=== PATIENT | male | born 1975 | race American Indian/Alaskan Native ===

== ENCOUNTER 2016-11-25 16:50 | Emergency (ER) | payer BC ==
[2016-11-25 17:40] LABS: BASO # 0.1 K/uL (0.0-0.2); EOS # 0.2 K/uL (0.0-0.7); EOS % 2.3 % (0.0-4.0); HEMOGLOBIN 13.6 g/dL (12.0-18.0); LYMPH # 2.6 K/uL (1.0-4.3); LYMPH % 30.2 % (20.0-40.0); MEAN CELL VOLUME 85.4 fL (80.0-94.0); MEAN CORPUSCULAR HEMOGLOBIN 28.1 pg (27.0-31.0); MEAN CORPUSCULAR HGB CONC 32.9 g/dL (33.0-37.0); MEAN PLATELET VOLUME 8.5 fL (7.2-11.7); MONO # 0.7 K/uL (0.0-0.8); MONO % 7.8 % (0.0-10.0); NEUT % 58.7 % (50.0-75.0); NRBC % 0.1 % (0.0-2.0); RBC 4.84 Mil/uL (4.40-5.90); RED CELL DISTRIBUTION WIDTH 13.4 % (11.5-14.5); WHITE BLOOD COUNT 8.6 K/uL (4.8-10.8)
[2016-11-25 17:47] LABS: ALBUMIN 4.5 g/dL (3.5-5.0)
[2016-11-25 17:49] LABS: GFR AFRICAN-AMERICAN > 60; GFR NON-AFRICAN AMERICAN > 60
[2016-11-25 17:50] LABS: ALB/GLOB RATIO 1.4 (1.0-2.1); ALT/SGPT 27 U/L (21-72); AST/SGOT 21 U/L (17-59); BLOOD UREA NITROGEN 12 mg/dL (9-20); CALCIUM 8.8 mg/dl (8.6-10.4); LIPASE 64 U/L (23-300)
--- NOTE | 2016-11-25 17:54 | RAD ---
HISTORY: SOB, abd pain COMPARISON: No prior. TECHNIQUE: Chest PA and lateral FINDINGS: LUNGS: Increased opacity seen in the right infrahilar region could represent atelectasis however developing the infrahilar infiltrate not excluded. There is a approximately 12.5 mm rounded nodular density left upper lobe which is located between the left anterior 2nd and 3rd ribs. This is very well-circumscribed with sharp margination and could represent represent skin mole however CT scan of the chest is recommended further evaluation to exclude a parenchymal low lung mass. . Note these findings were discussed with ELADIO Quintanilla at approximately 5:49 p.m. with written down and read back verification. PLEURA: No significant pleural effusion identified. No pneumothorax apparent. CARDIOVASCULAR: Normal. OSSEOUS STRUCTURES: Mild dextroscoliosis centered in the mid lower thoracic region radiology pectus VISUALIZED UPPER ABDOMEN: Normal. OTHER FINDINGS: None. IMPRESSION: 12.5 mm rounded nodular density left upper lobe which is located between the left anterior 2nd and 3rd ribs. This is very well-circumscribed with sharp margination and could represent represent skin mole however CT scan of the chest is recommended further evaluation to exclude a parenchymal low lung mass. . Note these findings were discussed with ELADIO Quintanilla at approximately 5:49 p.m. with written down and read back verification.
--- NOTE | 2016-11-25 18:23 | C.PDOC ---
History Of Present Illness <Rachel Quintanilla - Last Filed: 11/25/16 18:59> <Annita Montemayor - Last Filed: 11/25/16 20:48> 41 y/o male presents to ED with c/o LLQ abdominal pain for 4 months. Patient states he was evaluated for similar symptoms but did not receive results. Patient states pain worsened over the last 3-4 days, prompting visit. Denies fever, chills, nausea, vomiting, diarrhea, urinary symptoms, or other associated symptoms. (Rachel Quintanilla) History Per: Patient History/Exam Limitations: no limitations Onset/Duration Of Symptoms: Persistent Current Symptoms Are (Timing): Worse Location Of Pain/Discomfort: LLQ Radiation Of Pain To:: None Quality Of Discomfort: "Pain" Associated Symptoms: denies: Fever, Chills, Nausea, Vomiting, Diarrhea, Urinary Symptoms Recent travel outside of the [place]: No <Rachel Quintanilla - Last Filed: 11/25/16 18:59> <Annita Montemayor - Last Filed: 11/25/16 20:48> Time Seen by Provider: 11/25/16 17:10 Chief Complaint (Nursing): Abdominal Pain Past Medical History Reviewed: Historical Data, Nursing Documentation, Vital Signs - Medical History PMH: TIA Surgical History: Appendectomy Family History: States: Unknown Family Hx - Social History Hx Alcohol Use: Yes Hx Substance Use: No - Immunization History Hx Tetanus Toxoid Vaccination: No Hx Influenza Vaccination: No Hx Pneumococcal Vaccination: No <Rachel Quintanilla - Last Filed: 11/25/16 18:59> Review Of Systems Except As Marked, All Systems Reviewed And Found Negative. Constitutional: Negative for: Fever, Chills Cardiovascular: Negative for: Chest Pain Respiratory: Negative for: Cough, Shortness of Breath Gastrointestinal: Positive for: Abdominal Pain. Negative for: Nausea, Vomiting , Diarrhea Skin: Negative for: Rash Neurological: Negative for: Weakness, Numbness, Headache <Rachel Quintanilla - Last Filed: 11/25/16 18:59> Physical Exam - Physical Exam Appears: Non-toxic, No Acute Distress Skin: Normal Color, Warm, Dry Head: Atraumatic, Normacephalic Oral Mucosa: Moist Chest: Symmetrical Cardiovascular: Rhythm Regular Respiratory: Normal Breath Sounds, No Rales, No Rhonchi, No Wheezing Gastrointestinal/Abdominal: Soft, Tenderness (mild, LLQ), No Distention, No Guarding, No Rebound Back: Normal Inspection, No CVA Tenderness Extremity: Normal ROM, Capillary Refill (< 2 sec. ) Neurological/Psych: Oriented x3, Normal Speech, Normal Cognition <Rachel Quintanilla - Last Filed: 11/25/16 18:59> ED Course And Treatment - Laboratory Results Result Diagrams: 11/25/16 17:35 11/25/16 17:35 O2 Sat by Pulse Oximetry: 97 (RA) Pulse Ox Interpretation: Normal Progress Note: CT Chest, CT abdomen, labs ordered. Treated with Toradol. <Racehl Quintanilla - Last Filed: 11/25/16 18:59> - Laboratory Results Result Diagrams: 11/25/16 17:35 11/25/16 17:35 Pulse Ox Interpretation: Normal Progress Note: spoke with pt and (hipaa compliant) regarding the nodule found on the ct lung. Understands the need for follow up and also smoking cessation <Annita Montemayor - Last Filed: 11/25/16 20:48> Medical Decision Making <Rachel Quintanilla - Last Filed: 11/25/16 18:59> <Annita Montemayor - Last Filed: 11/25/16 20:48> Medical Decision Making: Patient was found to have nodule on CXR, CT chest ordered. (Rachel Quintanilla) Upon provider reevaluation patient is feeling better, is medically stable, and requires no further treatment in the ED at this time. Patient will be discharged home . Counseling was provided and all questions were answered regarding diagnosis and need for follow up with the referred clinic. There is agreement to discharge plan. Return if symptoms persist or worsen. (Annita Montemayor ) Disposition - Disposition Disposition Time: 19:00 <Rachel Quintanilla - Last Filed: 11/25/16 18:59> Counseled Patient/Family Regarding: Studies Performed, Diagnosis, Need For Followup, Smoking Cessation <Annita Montemayor - Last Filed: 11/25/16 20:48> - Disposition Referrals: [facility] [Outside] [facility] [Outside] Disposition: HOME/ ROUTINE Condition: FAIR Additional Instructions: Please repeat a CT scan of the chest in 3 months. Need to follow up with your doctor Instructions: Abdominal Pain (ED), Gas and Bloating (ED), Pulmonary Nodules (ED ) - Clinical Impression Clinical Impression: Abdominal pain, Lung mass - PA / TOP CLEANER / Resident Statement MD/DO has reviewed & agrees with the documentation as recorded. - Scribe Statement The provider has reviewed the documentation as recorded by the Scribe <Rachel Quintanilla - Last Filed: 11/25/16 18:59> <Annita Montemayor - Last Filed: 11/25/16 20:48> - Scribe Statement Chuck Marcus All medical record entries made by the Scribe were at my direction and personally dictated by me. I have reviewed the chart and agree that the record accurately reflects my personal performance of the history, physical exam, medical decision making, and the department course for this patient. I have also personally directed, reviewed, and agree with the discharge instructions and disposition. (Rachel Quintanilla) Physician Patient Turnover Patient Signed Over To: Annita Montemayor Handoff Comments: Pending CT scan and disposition <Rachel Quintanilla - Last Filed: 11/25/16 18:59>
[2016-11-25] MEDS ORDERED: Iohexol 350mg/ml 100 ML ONE (18:50)
[2016-11-25] MEDS ORDERED: Sodium Chloride 0.9% 1,000 ML IV ONE (18:58)
[2016-11-25 19:11] LABS: URINE BILIRUBIN NEGATIVE (NEGATIVE); URINE BLOOD 2+ (NEGATIVE); URINE CLARITY Clear (Clear); URINE COLOR Yellow (YELLOW); URINE GLUCOSE (UA) NORMAL (Normal); URINE LEUKOCYTE ESTERASE NEG Leu/uL (Negative); URINE NITRATE NEGATIVE (NEGATIVE); URINE PROTEIN NEGATIVE (NEGATIVE); URINE UROBILINOGEN NORMAL mg/dL (0.2-1.0)
[2016-11-25 21:08] VITALS: BP 107/71; PULSE 76; RESP 18; TEMP 98; O2SAT 98
--- NOTE | 2016-11-26 08:51 | CT ---
PROCEDURE: CT Chest, Abdomen and Pelvis with intravenous contrast HISTORY: Left upper lobe lung mass. COMPARISON: None. TECHNIQUE: Multiple contiguous axial images were performed through the chest abdomen and pelvis with the use of intravenous contrast. Subsequently, sagittal and coronal reformatted images were obtained. Radiation dose: Total exam DLP = 278 mGy-cm. This CT exam was performed using one or more of the following dose reduction techniques: Automated exposure control, adjustment of the mA and/or kV according to patient size, and/or use of iterative reconstruction technique. FINDINGS: CT CHEST WITH CONTRAST: LUNGS: 1.3 centimeter mass seen in the left upper lobe of the lung. This measures a Hounsfield unit attenuation of -29 suggestive for the presence of possible fatty components of the mass. MEDIASTINUM: Unremarkable. Normal caliber aorta and pulmonary arterial trunk. No aortic dissection. Normal size heart. LYMPH NODES: Few shotty axillary lymph nodes. PLEURA: Unremarkable. No pneumothorax. No pleural fluid. BONES: Unremarkable. OTHER FINDINGS: None. CT ABDOMEN AND PELVIS: LIVER: Focal areas of fatty infiltration adjacent to the falciform ligament in the liver. GALLBLADDER AND BILE DUCTS: Unremarkable. PANCREAS: Unremarkable. No gross lesion or ductal dilatation. SPLEEN: Unremarkable. ADRENALS: Unremarkable. No mass. KIDNEYS AND URETERS: 3 millimeter cortical cyst of the right kidney, too small to adequately characterize. VASCULATURE: Unremarkable. No aortic aneurysm. BOWEL: Markedly limited evaluation given lack of oral contrast as well as lack of intra-abdominal fat. Fecal retention in the colon. APPENDIX: Not well visualized given lack of oral contrast. No findings to suggest acute appendicitis. PERITONEUM: Unremarkable. No free fluid. No free air. LYMPH NODES: Unremarkable. No enlarged lymph nodes. BLADDER: Decompressed urinary bladder which is otherwise preserved. REPRODUCTIVE: Unremarkable. BONES: No acute fracture. OTHER FINDINGS: Soft tissue fullness in the bilateral inguinal regions probably representing fat containing hernias. No definite bowel loops identified. IMPRESSION: 1.3 centimeter low-density mass in the left upper lobe of the lung. The density of the mass is -29 Hounsfield units suggesting the presence of possible fatty components. This is of uncertain clinical etiology. Differential may include a hamartoma versus lipoma versus myelolipoma versus neoplasm versus additional etiology. Clinical correlation. Interval followup CT at a 3 month interval and or correlation with PET-CT and/or biopsy may be helpful if clinically indicated. Bilateral fat containing inguinal hernias. Additional findings as above. These findings were preliminarily reported at 8:19 p.m. on 11/25/[address] Gregorio Muñoz from [facility].
== END 2016-11-25 21:00 | disposition home or self-care (01) ==
LOC: C.ER 16:50
DX: R10.32 Left lower quadrant pain (principal); R91.8 Other nonspecific abnormal finding of lung field
CPT/HCPCS: 71020; 71260; 74177; 80053; 81001; 83690; 85025; 96361; 96374; 99284; J1885; J7040; Q9967

== ENCOUNTER 2017-11-23 08:30 | Emergency (ER) | payer BC ==
--- NOTE | 2017-11-23 09:47 | C.PDOC ---
History Of Present Illness 42-year-old male, presents to the emergency department complaining of left flank pain, happening intermittently for the past several months. Pt states that this morning, pain became more severe and associated with nausea, prompting visit. Patient states he has been seen for same complaint many times in the past, bloodwork was done but he has never been scanned. Patient denies any dysuria, hematuria, vomiting or diarrhea. No other complaints at this time. Time Seen by Provider: 11/23/17 09:30 Chief Complaint (Nursing): Abdominal Pain History Per: Patient History/Exam Limitations: no limitations Current Symptoms Are (Timing): Still Present Severity: Moderate Past Medical History Reviewed: Historical Data, Nursing Documentation, Vital Signs Vital Signs: Last Vital Signs Temp 98.7 F 11/23/17 12:14 Pulse 70 11/23/17 12:14 Resp 18 11/23/17 12:14 BP 126/87 11/23/17 12:14 Pulse Ox 99 11/23/17 12:14 - Medical History PMH: TIA Surgical History: Appendectomy Family History: States: No Known Family Hx - Social History Hx Alcohol Use: Yes Hx Substance Use: No - Immunization History Hx Tetanus Toxoid Vaccination: No Hx Influenza Vaccination: No Hx Pneumococcal Vaccination: No Review Of Systems Except As Marked, All Systems Reviewed And Found Negative. Constitutional: Negative for: Fever, Chills Cardiovascular: Negative for: Chest Pain, Palpitations Respiratory: Negative for: Shortness of Breath Gastrointestinal: Positive for: Nausea. Negative for: Vomiting Genitourinary: Negative for: Dysuria, Hematuria Musculoskeletal: Positive for: Back Pain Neurological: Negative for: Weakness Physical Exam - Physical Exam Appears: Non-toxic, No Acute Distress Skin: Normal Color, Warm, Dry, No Rash Head: Atraumatic, Normacephalic Eye(s): bilateral: Normal Inspection, PERRL, EOMI Nose: Normal Oral Mucosa: Moist Lips: Normal Appearing Neck: Normal ROM Cardiovascular: Rhythm Regular, No Murmur Respiratory: Normal Breath Sounds, No Accessory Muscle Use Gastrointestinal/Abdominal: Soft, No Tenderness, No Distention, No Guarding, No Rebound Back: CVA Tenderness (Left) Extremity: Normal ROM, No Deformity, No Swelling Neurological/Psych: Oriented x3, Normal Speech ED Course And Treatment - Laboratory Results Result Diagrams: 11/23/17 10:40 11/23/17 10:40 O2 Sat by Pulse Oximetry: 100 (RA) Pulse Ox Interpretation: Normal - CT Scan/US ct abd/pelvis Other Rad Studies (CT/US): Read By Radiologist, Radiology Report Reviewed CT/US Interpretation: Accession No. : [id number]. Patient Name / ID : LISA FREY / [id number]. Exam Date : 11/23/2017 10:05:50 ( Approved ). Study Comment : Sex / Age : M / 42Y. Creator : Nini Vance. Dictator : Delio Thompson MD. Math Teacher : Business Consult : Delio Thompson MD. Approver2 : Report Date : 11/23/2017 10:19:52. My Comment : . PROCEDURE: CT Abdomen and Pelvis without intravenous contrast. HISTORY: LEFT FLANK PAIN R/O KIDNEY STONE. COMPARISON: Its. TECHNIQUE: Without contrast.. Contrast dose: 0. Radiation dose: Total exam DLP = 321.78 mGy-cm. This CT exam was performed using one or more of the following dose reduction techniques : Automated exposure control, adjustment of the mA and/or kV according to patient size, and/or use of iterative reconstruction technique. FINDINGS: LOWER THORAX: Unremarkable. LIVER: Unremarkable. No gross lesion or ductal dilatation. GALLBLADDER AND BILE DUCTS: Unremarkable. PANCREAS: Unremarkable. No gross lesion or ductal dilatation. SPLEEN: Unremarkable. ADRENALS: Unremarkable. No mass. KIDNEYS AND URETERS: Two very small nonobstructing left renal calculi, 2 mm and 3 mm, respectively. No hydronephrosis. No ureteral calculus or hydroureter. No right renal calculus. No renal mass. VASCULATURE: Unremarkable. No aortic aneurysm. BOWEL: Unremarkable. No obstruction. No gross mural thickening. APPENDIX: Not identified. No secondary findings to suggest appendicitis. PERITONEUM: Unremarkable. No free fluid. No free air. LYMPH NODES: Unremarkable. No enlarged lymph nodes. BLADDER: Poorly distended. Thickened wall likely artifact due to inadequate distention. Correlate with urinalysis for cystitis. REPRODUCTIVE: Normal prostate. BONES: No acute fracture. OTHER FINDINGS: None. IMPRESSION: Two nonobstructing very small left renal calculi. No evidence of urinary tract obstruction. No ureteral calculus. Thick walled urinary bladder likely artifact due to inadequate distention. Correlate with urinalysis. No additional abnormality. Disposition Counseled Patient/Family Regarding: Studies Performed, Diagnosis, Need For Followup, Rx Given - Disposition Referrals: Axel Bonner MD [Staff Provider] - Disposition: HOME/ ROUTINE Disposition Time: 12:00 Condition: STABLE Additional Instructions: FOLLOW UP WITH UROLOGY WITHIN 1 WEEK DRINK PLENTY OF FLUIDS USE MEDICATIONS DIRECTED RETURN TO ER IF SYMPTOMS WORSEN Prescriptions: Naproxen 375 mg PO BID PRN #20 tablet PRN Reason: pain Tamsulosin [Flomax] 0.4 mg PO DAILY #5 cap Instructions: Renal Colic (DC) Forms: [facility] (Armenian), Work Excuse Print Language: DANISH - Clinical Impression Clinical Impression: Renal colic on left side, Kidney stone on left side - Scribe Statement The provider has reviewed the documentation as recorded by the Scribe (Cory Huynh) All medical record entries made by the Scribe were at my direction and personally dictated by me. I have reviewed the chart and agree that the record accurately reflects my personal performance of the history, physical exam, medical decision making, and the department course for this patient. I have also personally directed, reviewed, and agree with the discharge instructions and disposition.
--- NOTE | 2017-11-23 10:44 | CT ---
PROCEDURE: CT Abdomen and Pelvis without intravenous contrast HISTORY: LEFT FLANK PAIN R/O KIDNEY STONE COMPARISON: Its TECHNIQUE: Without contrast.. Contrast dose: 0 Radiation dose: Total exam DLP = 321.78 mGy-cm. This CT exam was performed using one or more of the following dose reduction techniques: Automated exposure control, adjustment of the mA and/or kV according to patient size, and/or use of iterative reconstruction technique. FINDINGS: LOWER THORAX: Unremarkable. LIVER: Unremarkable. No gross lesion or ductal dilatation. GALLBLADDER AND BILE DUCTS: Unremarkable. PANCREAS: Unremarkable. No gross lesion or ductal dilatation. SPLEEN: Unremarkable. ADRENALS: Unremarkable. No mass. KIDNEYS AND URETERS: Two very small nonobstructing left renal calculi, 2 mm and 3 mm, respectively. No hydronephrosis. No ureteral calculus or hydroureter. No right renal calculus. No renal mass. VASCULATURE: Unremarkable. No aortic aneurysm. BOWEL: Unremarkable. No obstruction. No gross mural thickening. APPENDIX: Not identified. No secondary findings to suggest appendicitis. PERITONEUM: Unremarkable. No free fluid. No free air. LYMPH NODES: Unremarkable. No enlarged lymph nodes. BLADDER: Poorly distended. Thickened wall likely artifact due to inadequate distention. Correlate with urinalysis for cystitis. REPRODUCTIVE: Normal prostate BONES: No acute fracture. OTHER FINDINGS: None. IMPRESSION: Two nonobstructing very small left renal calculi. No evidence of urinary tract obstruction. No ureteral calculus. Thick walled urinary bladder likely artifact due to inadequate distention. Correlate with urinalysis. No additional abnormality.
[2017-11-23 10:45] LABS: BASO % 0.7 % (0.0-2.0); EOS # 0.2 K/uL (0.0-0.7); EOS % 4.2 % (0.0-4.0); HEMOGLOBIN 13.8 g/dL (12.0-18.0); LYMPH % 35.1 % (20.0-40.0); MEAN CELL VOLUME 84.3 fL (80.0-94.0); MEAN CORPUSCULAR HEMOGLOBIN 29.2 pg (27.0-31.0); MEAN CORPUSCULAR HGB CONC 34.6 g/dL (33.0-37.0); MONO # 0.5 K/uL (0.0-0.8); RBC 4.74 Mil/uL (4.40-5.90); RED CELL DISTRIBUTION WIDTH 13.6 % (11.5-14.5); WHITE BLOOD COUNT 5.8 K/uL (4.8-10.8)
[2017-11-23 11:08] LABS: ALB/GLOB RATIO 1.6 (1.0-2.1); ALBUMIN 4.8 g/dL (3.5-5.0); ALT/SGPT 41 U/L (21-72); AST/SGOT 35 U/L (17-59); BLOOD UREA NITROGEN 8 mg/dL (9-20); CALCIUM 9.2 mg/dl (8.6-10.4); GFR AFRICAN-AMERICAN > 60; GFR NON-AFRICAN AMERICAN > 60; LIPASE 87 U/L (23-300)
[2017-11-23 11:28] LABS: URINE BILIRUBIN NEGATIVE (NEGATIVE); URINE BLOOD NEGATIVE (NEGATIVE); URINE CLARITY Clear (Clear); URINE COLOR Yellow (YELLOW); URINE GLUCOSE (UA) NORMAL (Normal); URINE LEUKOCYTE ESTERASE NEG Leu/uL (Negative); URINE PROTEIN NEGATIVE (NEGATIVE)
[2017-11-23 12:15] VITALS: BP 126/87; PULSE 70; RESP 18; TEMP 98.7
[2017-11-23 12:55] VITALS: O2SAT 100
== END 2017-11-23 12:15 | disposition home or self-care (01) ==
LOC: C.ER 08:30
DX: N20.0 Calculus of kidney (principal)

== ENCOUNTER 2017-12-15 09:26 | Emergency (ER) | payer BC ==
[2017-12-15] MEDS: Sodium Chloride 0.9% 1,000 ML IV ONE (10:15)
[2017-12-15] MEDS ORDERED: Sodium Chloride 0.9% 1,000 ML ONE (10:17)
[2017-12-15 10:32] LABS: BASO # 0.1 K/uL (0.0-0.2); BASO % 1.1 % (0.0-2.0); EOS # 0.3 K/uL (0.0-0.7); EOS % 5.3 % (0.0-4.0); HEMOGLOBIN 13.8 g/dL (12.0-18.0); LYMPH # 1.9 K/uL (1.0-4.3); LYMPH % 32.9 % (20.0-40.0); MEAN CELL VOLUME 85.4 fL (80.0-94.0); MEAN CORPUSCULAR HEMOGLOBIN 28.9 pg (27.0-31.0); MEAN CORPUSCULAR HGB CONC 33.9 g/dL (33.0-37.0); MEAN PLATELET VOLUME 8.1 fL (7.2-11.7); MONO # 0.6 K/uL (0.0-0.8); MONO % 11.5 % (0.0-10.0); NEUT # 2.8 K/uL (1.8-7.0); NEUT % 49.2 % (50.0-75.0); RBC 4.77 Mil/uL (4.40-5.90); RED CELL DISTRIBUTION WIDTH 13.8 % (11.5-14.5); WHITE BLOOD COUNT 5.6 K/uL (4.8-10.8)
--- NOTE | 2017-12-15 10:52 | RAD ---
Date of service: 12/15/2017 HISTORY: left flank pain, hx fo kidney stone, compare to ct COMPARISON: No prior. FINDINGS: BOWEL: Normal. No obstruction. No free air. No abnormal internal calcifications are identified. Punctate calcifications were identified previously with 2 with the left kidney in prior CT 11/23/2017. These may be too small to identify by plain film radiography. BONES: Normal. OTHER FINDINGS: None. IMPRESSION: No active disease.
--- NOTE | 2017-12-15 11:12 | C.PDOC ---
History Of Present Illness 42yo male, comes to ER for evaluation of left flank pain. Patient states he was recently diagnosed with renal colic and has an appointment with Dr. Carreon on but states the pain returned yesterday. He reports speaking with Dr. Bonner, who advised him to come to the ER for further evaluation. Patient denies any radiation of pain, nausea, vomiting, diarrhea, hematuria or dysuria. He offers no additional medical complaints. Time Seen by Provider: 12/15/17 09:46 Chief Complaint (Nursing): Male Genitourinary History Per: Patient History/Exam Limitations: no limitations Onset/Duration Of Symptoms: Days Current Symptoms Are (Timing): Still Present Quality Of Discomfort: "Pain" Associated Symptoms: denies: Fever, Chills, Nausea, Vomiting, Diarrhea, Urinary Symptoms Additional History Per: Patient Past Medical History Reviewed: Historical Data, Nursing Documentation, Vital Signs Vital Signs: Last Vital Signs Temp 98.6 F 12/15/17 09:34 Pulse 75 12/15/17 09:34 Resp 16 12/15/17 09:34 BP 116/82 12/15/17 09:34 Pulse Ox 98 12/15/17 11:59 - Medical History PMH: TIA Surgical History: Appendectomy Family History: States: No Known Family Hx - Social History Hx Alcohol Use: Yes Hx Substance Use: No - Immunization History Hx Tetanus Toxoid Vaccination: No Hx Influenza Vaccination: No Hx Pneumococcal Vaccination: No Review Of Systems Except As Marked, All Systems Reviewed And Found Negative. Constitutional: Negative for: Fever, Chills Gastrointestinal: Positive for: Other (left flank pain). Negative for: Nausea, Vomiting Genitourinary: Negative for: Dysuria, Frequency, Hematuria Physical Exam - Physical Exam Appears: Non-toxic Skin: Normal Color, Dry Head: Normacephalic Eye(s): bilateral: Normal Inspection Neck: Supple Chest: Symmetrical Cardiovascular: Rhythm Regular Respiratory: Normal Breath Sounds Gastrointestinal/Abdominal: Soft, Tenderness (left lateral abdominal tenderness) , No Mass, No Guarding, No Rebound Back: CVA Tenderness (left), No Vertebral Tenderness, No Paraspinal Tenderness Extremity: Normal ROM Neurological/Psych: Oriented x3 ED Course And Treatment - Laboratory Results Result Diagrams: 12/15/17 10:26 12/15/17 10:26 O2 Sat by Pulse Oximetry: 98 (RA) Pulse Ox Interpretation: Normal - Other Rad XR Abdomen X-Ray: Viewed By Me, Read By Radiologist Interpretation: FINDINGS: BOWEL: Normal. No obstruction. No free air. No abnormal internal calcifications are identified. Punctate calcifications were identified previously with 2 with the left kidney in prior CT 11/23/2017. These may be too small to identify by plain film radiography. BONES: Normal. OTHER FINDINGS: None. IMPRESSION: No active disease. Medical Decision Making Medical Decision Making: Assessment: Renal colic Plan: -- XR Abdomen -- Labs -- Urinalysis -- Pepcid 20mg IV -- Toradol 30mg IV -- IV Fluids 1154 Labs and urinalysis reviewed with no clinically significant abnormalities. XR abdomen reviewed with no active disease. On reassessment, patient reports significant improvement in symptoms. Instructed to follow up with Dr. Bonner as scheduled. Disposition Counseled Patient/Family Regarding: Studies Performed, Diagnosis - Disposition Referrals: Axel Bonner MD [Staff Provider] - Disposition: HOME/ ROUTINE Disposition Time: 11:54 Condition: STABLE Additional Instructions: follow up with urologist in 2 days call to make an appointment today continue medications at home return to ER if symptoms worsens or progress Prescriptions: Lidocaine 5% [Lidoderm] 1 ea TD DAILY PRN #10 patch PRN Reason: Pain, Moderate (4-7) Naproxen [Naprosyn] 500 mg PO BID PRN #16 tab PRN Reason: Pain, Moderate (4-7) traMADol [Ultram] 50 mg PO TID PRN #12 tab PRN Reason: Pain, Moderate (4-7) Instructions: Flank Pain (DC) Forms: [facility] (Slovak), General Discharge Instructions - Clinical Impression Clinical Impression: Renal colic on left side - Scribe Statement The provider has reviewed the documentation as recorded by the [place] Henderson Provider Attestation: All medical record entries made by the [place] were at my direction and personally dictated by me. I have reviewed the chart and agree that the record accurately reflects my personal performance of the history, physical exam, medical decision making, and the department course for this patient. I have also personally directed, reviewed, and agree with the discharge instructions and disposition.
[2017-12-15 11:35] LABS: SQUAMOUS EPITHIAL 1 /hpf (0-5); URINE AMORPHOUS SEDIMENT RARE /ul (<OCC); URINE BILIRUBIN NEGATIVE (NEGATIVE); URINE BLOOD NEGATIVE (NEGATIVE); URINE CLARITY Hazy (Clear); URINE COLOR Yellow (YELLOW); URINE GLUCOSE (UA) NORMAL (Normal); URINE LEUKOCYTE ESTERASE NEG Leu/uL (Negative); URINE PROTEIN NEGATIVE (NEGATIVE)
[2017-12-15 11:35] LABS: ALB/GLOB RATIO 1.6 (1.0-2.1); ALBUMIN 4.3 g/dL (3.5-5.0); ALT/SGPT 32 U/L (21-72); AST/SGOT 22 U/L (17-59); BLOOD UREA NITROGEN 10 mg/dL (9-20); CALCIUM 9.3 mg/dl (8.6-10.4); GFR AFRICAN-AMERICAN > 60; GFR NON-AFRICAN AMERICAN > 60; LIPASE 66 U/L (23-300)
[2017-12-15 12:10] VITALS: BP 127/85; PULSE 71; RESP 14; TEMP 98.7; O2SAT 100
== END 2017-12-15 12:43 | disposition home or self-care (01) ==
LOC: C.ER 09:26
DX: N23 Unspecified renal colic (principal)
CPT/HCPCS: 74019; 80053; 81001; 83690; 85025; 96374; 96375; 99284; J1885; J7030

== ENCOUNTER 2018-02-17 06:46 | Day surgery (SDC) | payer BC ==
--- NOTE | 2018-02-17 08:37 | CP.SDSHP ---
Same Day Surgery H & P - History Proposed Procedure: EGD/colonoscopy Pre-Op Diagnosis: weight loss, change in bowel habits - Allergies Allergies: Allergies No Known Allergies Allergy (Verified 12/15/17 09:36) - Physical Exam General Appearance: NAD Vital Signs: Vital Signs 02/17/18 07:08 Temperature 97.1 F L Pulse Rate 75 Respiratory 19 Rate Blood Pressure 103/77 O2 Sat by Pulse 100 Oximetry Mental Status: Alert & Oriented x3 Neuro: WNL Heart: WNL Lungs: WNL GI: WNL - {Optional Preform as Required} Abdomen: WNL - Impression Pt. Evaluated Today:Candidate for Anesthesia & Procedure: Yes - Date & Time Date: 02/17/18 Time: 08:37 Short Stay Discharge - Short Stay Discharge Admitting Diagnosis/Reason for Visit: CHANGE IN BOWEL HABITS, WEIGHT LOSS Disposition: HOME/ ROUTINE
[2018-02-17] MEDS ORDERED: Propofol 10 mg/ml Inj (20 ML) ONE (08:39)
[2018-02-17] MEDS ORDERED: Midazolam 2 MG/2 ML VIAL ONE (08:42)
[2018-02-17 09:32] VITALS: TEMP 96.6
[2018-02-17 09:52] VITALS: BP 122/80; PULSE 80; RESP 20; O2SAT 99
== END 2018-02-17 09:55 | disposition home or self-care (01) ==
LOC: C.ENDO 06:46
PROVIDERS: ATTEND Internal Medicine Gastroenterology
DX: K29.70 Gastritis, unspecified, without bleeding (principal); R63.4 Abnormal weight loss; K64.1 Second degree hemorrhoids
CPT/HCPCS: 43239; 45378; 88305; 88313; 88342; J2250; J2704

== ENCOUNTER 2018-08-07 12:29 | Emergency (ER) | payer BC ==
--- NOTE | 2018-08-07 12:44 | C.PDOC ---
History Of Present Illness 43 year old male with no pertinent PMHx presents to the ED complaining of rectal pain for one week. Notes episode of pain during and after bowel movement 6 days ago that resolved on its own. Reports pain returned today while having a bowel movement at [place] associated with bloody and dark stool. Denies any hard stool, abnormal rectal discharge. Denies recent sexual activity related to rectal area. Reports he had a normal colonoscopy in February performed in this institution. 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 Time Seen by Provider: 08/07/18 12:44 Chief Complaint (Nursing): Back Pain History Per: Patient History/Exam Limitations: no limitations Onset/Duration Of Symptoms: Days Current Symptoms Are (Timing): Still Present Quality Of Discomfort: "Pain" Past Medical History Reviewed: Historical Data, Nursing Documentation, Vital Signs Vital Signs: Last Vital Signs Temp 98.5 F 08/07/18 12:37 Pulse Resp BP 128/85 08/07/18 12:37 Pulse Ox - Medical History PMH: TIA Denies: Chronic Kidney Disease Surgical History: Appendectomy Family History: States: No Known Family Hx - Social History Hx Alcohol Use: Yes Hx Substance Use: No - Immunization History Hx Tetanus Toxoid Vaccination: No Hx Influenza Vaccination: No Hx Pneumococcal Vaccination: No Review Of Systems Constitutional: Negative for: Fever, Chills Cardiovascular: Negative for: Chest Pain Respiratory: Negative for: Shortness of Breath Gastrointestinal: Positive for: Melena, Hematochezia, Rectal Pain. Negative for: Nausea, Vomiting, Abdominal Pain, Diarrhea, Constipation Genitourinary: Negative for: Dysuria, Hematuria Musculoskeletal: Negative for: Back Pain Skin: Negative for: Rash Physical Exam - Physical Exam Appears: Non-toxic, No Acute Distress Skin: Warm, Dry Head: Normacephalic Eye(s): bilateral: PERRL, EOMI Oral Mucosa: Moist Neck: Supple Chest: Symmetrical Cardiovascular: Rhythm Regular Respiratory: No Rales, No Rhonchi, No Wheezing Rectal: Hemorrhoids (external hemorrhoid at 5 o' clock, non-thrombosed ) Neurological/Psych: Oriented x3, Normal Speech Gait: Steady ED Course And Treatment O2 Sat by Pulse Oximetry: 100 (RA) Pulse Ox Interpretation: Normal Medical Decision Making Medical Decision Making: Impression: Rectal pain Plan: - Stool culture 1439 guaic negative no masses noted onexam 5 oclock hemorrhoid, non thrombosed clear for d/c home Disposition - Disposition Referrals: Thanh Lamar MD [Staff Provider] - [facility] [Outside] [facility] [Outside] [facility] [Outside] Daniel Carreno [Staff Provider] - Disposition: HOME/ ROUTINE Disposition Time: 14:37 Additional Instructions: take preparation H OTC as written on the bottle, SEE YOUR GI AND PM LOWELL TK GONZALEZ, thank you for letting us take care of you today. Your provider was Juan sTang and you were treated for POSSIBLE GI PROBLEM. The emergency medical care you received today was directed at your acute symptoms. If you were prescribed any medication, please fill it and take as directed. It may take several days for your symptoms to resolve. Return to the Emergency Department if your symptoms worsen, do not improve, or if you have any other problems. Please contact your doctor or call one of the physicians/clinics you have been referred to that are listed on the Patient Visit Information form that is included in your discharge packet. Bring any paperwork you were given at discharge with you along with any medications you are taking to your follow up visit. Our treatment cannot replace ongoing medical care by a primary care provider outside of the emergency department. Thank you for allowing the [facility] team to be part of your care today. If you had an X-Ray or CT scan: A Radiologist will review the ED reading if any change in treatment is needed we will contact you. If you had a blood, urine, or wound culture: It will take several days for the results, if any change in treatment is needed we will contact you. If you had an STI test: It will take 48 hours for the results. Please call after 1 week if you have not heard back. Instructions: Hemorrhoids (DC), Hemorrhoids Forms: [facility] (Uzbek) - Clinical Impression Clinical Impression: External hemorrhoid - Scribe Statement The provider has reviewed the documentation as recorded by the Viktoriyaibkristen Triplett All medical record entries made by the Viktoriyaibkristen were at my direction and personally dictated by me. I have reviewed the chart and agree that the record accurately reflects my personal performance of the history, physical exam, medical decision making, and the department course for this patient. I have also personally directed, reviewed, and agree with the discharge instructions and disposition.
[2018-08-07 12:48] VITALS: BP 128/85; PULSE 77; RESP 18; TEMP 98.5; O2SAT 100
== END 2018-08-07 14:49 | disposition home or self-care (01) ==
LOC: C.ER 12:29
DX: K64.4 Residual hemorrhoidal skin tags (principal)
CPT/HCPCS: 99282; G0328